=== PATIENT | female | born 1990 | race Two or more races ===

== ENCOUNTER 2018-05-31 06:19 | Inpatient (IN) | payer OTHER ==
[~2018-05-31] VITALS: Ht 160 cm; Wt 72.6 kg
[2018-05-31] VITALS (17 sets, daily range): BP systolic 112–144; BP diastolic 65–86
[~2018-05-31 06:19] MED LIST: LR 1000ml 1,000 ML IVLG SCH; NKM
[2018-05-31] MEDS ORDERED: Zemuron 50mg/5ml Inj IV ONE (06:24)
[2018-05-31] MEDS ORDERED: Ketorolac 30mg Inj IV PRN ×2 (06:30)
[2018-05-31] MEDS ORDERED: Meperidine 50mg/ml Inj(FOR RIGORS ONLY) IVP PRN (06:30)
[2018-05-31] MEDS ORDERED: fentaNYL 100 mcg/2 mL IV PRN (06:30)
[2018-05-31] MEDS ORDERED: Atropine Sulfate 0.4mg/ml inj IVP PRN (06:30)
[2018-05-31] MEDS ORDERED: oxyCODONE HCL/Acetaminophen 5/325mg ORAL PRN (06:30)
[2018-05-31] MEDS ORDERED: Gelfoam Absorbable 1gm powder pkt TOPIC ONE (06:30)
[2018-05-31] MEDS ORDERED: Norco 5mg/325mg tab ORAL PRN (06:30)
[2018-05-31] MEDS ORDERED: HYDROcodone/Acetamin 7.5/325 tab ORAL PRN (06:30)
[2018-05-31] MEDS ORDERED: Acetaminophen (Non formulary) 100 ML IV ONE (06:30)
[2018-05-31] MEDS ORDERED: Midazolam 2mg/2ml Inj IVP PRN (06:30)
[2018-05-31] MEDS ORDERED: Metoclopramide 10mg/2ml Inj IVP PRN (06:30)
[2018-05-31] MEDS ORDERED: LORazepam Inj 2mg/ml 1ml IV PRN (06:30)
[2018-05-31] MEDS ORDERED: Propofol 1,000mg/ 100ml btl IV ONE ×2 (06:30→08:00)
[2018-05-31] MEDS ORDERED: DiphenhydrAMINE 50mg/ml Inj IVP PRN (06:30)
--- NOTE | 2018-05-31 06:58 | Anethesia Preoperative Eval ---
Anesthesia Pre-op PMH/ROS General Date of Evaluation: May 31, 2018 Time of Evaluation: 08:06 Anesthesiologist: Shona ASA Score: ASA 2 Mallampati Score Class I : Soft palate, uvula, fauces, pillars visible Class II: Soft palate, uvula, fauces visible Class III: Soft palate, base of uvula visible Class IV: Only hard plate visible Mallampati Classification: Class II Surgeon: Patricio Diagnosis: Back Pain Surgical Procedure: TLIF L4-5, Redo Laminectomy, Discectomy Anesthesia History: none Social History: smoking Family History: no anesthesia problems Allergies: Coded Allergies: No Known Allergies (Unverified , 05/29/18) Medications: see eMAR Patient NPO?: Yes Past Medical History Pulmonary: Reports: other - Bronchitis, Smoking PSxH Narrative: Lumbar Spine Sx Anesthesia Pre-op Phys. Exam Physician Exam Last Vital Signs Date Time Temp Pulse Resp B/P (MAP) Pulse Ox O2 Delivery O2 Flow Rate FiO2 05/31/18 06:49 97.1 91 18 124/65 (84) 99 Constitutional: NAD Neurologic: CN 2-12 intact Cardiovascular: RRR Respiratory: CTA Gastrointestinal: S/NT/ND Airway Exam Mallampati Score: Class II MO: full ROM: full Teeth: intact Anesthesia Pre-op A/P Labs Urine Test Test 05/31/18 06:30 Urine HCG, Qualitative Pending Risk Assessment & Plan Assessment: ASA 2 Plan: GA, SED, GlideScope Go Status Change Before Surgery: No Pre-Antibiotics Dru Grams Ancef IV Given Within 1 Hr of Incision: Yes Time Given: 08:26 Matthew Nagel MD May 31, 2018 06:58
[2018-05-31] MEDS ORDERED: ceFAZolin sod 1 GM in NS 55 ML IVPB ONE (07:00)
[2018-05-31] MEDS ORDERED: Sodium Chloride 10ml vial INJ ONE (07:10)
[2018-05-31] MEDS ORDERED: Dexamethasone 4mg/ml vial ONE (07:10)
[2018-05-31] MEDS ORDERED: Lidocaine 1% MPF 10mg/ml 5ml ONE (07:10)
[2018-05-31] MEDS ORDERED: fentaNYL 100 mcg/2 mL IV ONE ×3 (07:11→11:47)
[2018-05-31] MEDS ORDERED: Vancomycin 1gm inj IVPB ONE (07:13)
[2018-05-31] MEDS ORDERED: Thrombin 5000 units spray kit TOPIC ONE (07:13)
[2018-05-31] MEDS ORDERED: Bacitracin 50000 Units Vial ONE (07:14)
[2018-05-31] MEDS ORDERED: Lidocaine 1% 10mg/ml/Epi 0.005mg/ml 30ml vial INJ ONE (07:14)
[2018-05-31] MEDS ORDERED: Bupivacaine w/Epi 0.5% 30ml Vial INJ ONE (07:14)
[2018-05-31] MEDS ORDERED: Gelfoam Size TOPIC ONE (07:14)
[2018-05-31] MEDS ORDERED: Thrombin 5000 units TOPIC ONE (07:14)
[2018-05-31] MEDS ORDERED: Lidocaine 1% Plain 30 ml INJ ONE ×2 (07:16→10:35)
--- NOTE | 2018-05-31 07:33 | 48 Hour Post Anesthesia Eval ---
Post Anesthesia Evaluation Procedure: TLIF L4-5, Redo Laminectomy, Discectomy Date of Evaluation: May 31, 2018 Time of Evaluation: 14:41 Blood Pressure Systolic: 123 0: 72 Pulse Rate: 83 Respiratory Rate: 18 Temperature (Fahrenheit): 98.6 O2 Sat by Pulse Oximetry: 100 Airway: patent Nausea: No Vomiting: No Pain Intensity: 3 Hydration Status: adequate Cardiopulmonary Status: Stable Mental Status/LOC: patient returned to baseline Follow-up Care/Observations: 0 Post-Anesthesia Complications: 0 Follow-up care needed: N/A Matthew Nagel MD May 31, 2018 07:33
--- NOTE | 2018-05-31 07:33 | Immediate Post-Op Evaluation ---
Immediate Post-Op Evalulation Immediate Post-Op Evalulation Procedure: TLIF L4-5, Redo Laminectomy, Discectomy Date of Evaluation: May 31, 2018 Time of Evaluation: 12:37 IV Fluids: 1100 LR Blood Products: 0 Estimated Blood Loss: 200 Urinary Output: 700 Blood Pressure Systolic: 140 Blood Pressure Diastolic: 74 Pulse Rate: 113 Respiratory Rate: 16 O2 Sat by Pulse Oximetry: 100 Temperature (Fahrenheit): 98.4 Pain Score (1-10): 2 Nausea: No Vomiting: No Complications 0 Patient Status: awake, reacts, patent, extubated, none Hydration Status: adequate Dru Grams Ancef IV Given Within 1 Hr of Incision: Yes Time Given: 08:26 Matthew Nagel MD May 31, 2018 07:33
[2018-05-31] MEDS ORDERED: NS Irrig 1000ml ONE (08:00)
[2018-05-31] MEDS ORDERED: LR 1000ml ONE (08:00)
[2018-05-31] MEDS ORDERED: Sterile Water Irrig 1000ml IRRIG ONE (08:00)
--- NOTE | 2018-05-31 08:39 | Pre-Procedure Note/Attestation ---
Pre-Procedure Note/Attestation Complete Prior to Procedure Procedure Narrative: L45 HWR, Discectomy, and TLIF Indications for Procedure Pre-Operative Diagnosis: SP discectomy, laminectomy and placement of coflex Attestation I attest that I discussed the nature of the procedure; its benefits; risks and complications; and alternatives (and the risks and benefits of such alternatives ), prior to the procedure, with the patient (or the patient's legal sales representative trainee). I attest that, if there was a reasonable possibility of needing a blood transfusion, the patient (or the patient's legal sales representative trainee) was given the [facility] standardized written summary, pursuant to the [place] Blood Safety Act ([place] Health and Safety Code # 1645, as amended). I attest that I re-evaluated the patient just prior to the surgery and that there has been no change in the patient's H&P, except as documented below: Wes Curry MD May 31, 2018 08:39
--- NOTE | 2018-05-31 08:44 | Brief Operative Note ---
Immediate Post Operative Note Operative Note Pre-op Diagnosis: SP discectomy, laminectomy and placement of coflex Procedure: HWR, L45, redo discectomy, and TLIF L Post-op Diagnosis: same as pre-op Surgeon: magnus Line Fixer: Suze Additional Surgeons: Davon Woodson, KEVEN Anesthesiologist: mic King Anesthesia: general Specimen: yes Complications: none Condition: stable Fluids: 1100 Estimated Blood Loss: volume - 200 Drains: hemovac Implant(s) used?: Yes - spinal elements Wes Curry MD May 31, 2018 08:44
[2018-05-31] MEDS ORDERED: Glycopyrrolate 0.2mg/ml 1ml Vial ONE (09:39)
[2018-05-31] MEDS ORDERED: Neostigmine 1mg/ml 10ml Inj ONE (09:39)
[2018-05-31] MEDS ORDERED: Milk of Magnesia 30ml Ud ORAL PRN ×2 (11:30→12:15)
[2018-05-31] MEDS ORDERED: HYDROcodone/Acetamin 10/325 tab ORAL PRN (11:30)
[2018-05-31] MEDS ORDERED: Naloxone 0.4mg/ml Inj ONE (11:42)
[2018-05-31] MEDS: Hydromorphone 0.5mg/0.5ml inj IVP PRN ×2 (12:53→13:18)
[2018-05-31] MEDS ORDERED: PCA HYDROmorphone 1mg/ml 30 ML IV PRN ×2 (13:43→13:59)
[2018-05-31] MEDS ORDERED: PCA HYDROmorphone 1mg/ml 30 ML IV ONE (13:44)
[2018-05-31] MEDS ORDERED: Rate Change PCA 1 Each MISC PRN (13:45)
--- NOTE | 2018-05-31 14:50 | Diagnostic Imaging Report ---
INDICATION: Pain, intraoperative TECHNIQUE: Intraoperative imaging Fluoroscopy time: 19.6 seconds Total dose: 7.19 mGy Total number of images: COMPARISON: None FINDINGS: Intraoperative images demonstrate surgical needle projected posterior to what is presumably L4-5. Incidental note is made of pre-existing hardware between the L5 and S1 spinous processes. Subsequent images demonstrate one view ordered device projecting along L5, and a surgical tool projected over L4. Subsequent images demonstrate posterior fusion hardware at L4-5, as well as a disc spacer. IMPRESSION: Intraoperative imaging, as described
[2018-05-31] MEDS ORDERED: Dronabinol 2.5mg Cap ORAL SCH ×2 (15:00)
[2018-05-31] MEDS ORDERED: Cyclobenzaprine 10mg Tab ORAL PRN (15:00)
[2018-05-31] MEDS: ceFAZolin sod 1 GM in D5W 55 ML IV SCH ×2 (16:46→23:27)
[2018-05-31] MEDS ORDERED: Docusate 100mg/10ml Liq ORAL SCH (18:00)
[2018-05-31] MEDS ORDERED: Docusate 100mg cap ORAL SCH (18:00)
[2018-05-31] MEDS: PCA shift volume MISC SCH (19:00)
--- NOTE | 2018-05-31 20:15 | Operative Note - Dictated ---
DATE OF OPERATION: 05/31/2018 SURGEON: Wes Curry M.D. FORENSIC SPECIALIST: Jose De Jesus Arciniega M.D. SECOND HACK DRIVER: Molly Woodson PA-C ANESTHESIA: Matthew Nagel M.D. ANESTHESIA TYPE: General endotracheal anesthesia. PREOPERATIVE DIAGNOSES: 1. Status post bilateral laminoforaminotomy, L4-L5 secondary to disk herniation with placement of Coflex device. 2. Recurrent disk herniation. 3. Mechanical back pain. POSTOPERATIVE DIAGNOSES: 1. Status post bilateral laminoforaminotomy, L4-L5 secondary to disk herniation with placement of Coflex device. 2. Recurrent disk herniation. 3. Mechanical back pain. OPERATION PERFORMED: 1. Removal of hardware (Coflex device, interspinous stabilizing device). 2. Operating through scarred and altered tissue/redo laminectomy, left side at L4 and superior 1/3rd at L5 with microscopic diskectomy of the extruded disk fragment at L5. 3. Complete facetectomy and diskectomy for purposes of placement of a structural cage (TLIF cage-spinal elements). 4. Posterior spinal fusion at L5. 5. Nonsegmental instrumentation at L4-L5 (spinal elements). 6. Placement of fusion mass (local autograft as well as allograft) fractured bone along the right lateral intertransverse region. 7. Placement of fusion/bone within the disk space (Signafuse for purposes of fusion). 8. Use of fluoroscopy. 9. Use of operating microscope. 10. Neurodiagnostic monitoring and pedicle screw stimulation. ESTIMATED BLOOD LOSS: 200 mL. FLUIDS: 1100 mL. COMPLICATIONS: None. FINDINGS: Large extruded disk fragments along the lateral recess, left side with the extrusion down to the level of the pedicle, requiring essentially more exposure and diskectomy as would be required with a standard TLIF approach. INDICATIONS: The patient is a very pleasant woman with fairly significant mechanical back and severe left lower extremity pain. MRI confirmed extruded disk fragment at L4-L5 with caudal migration, this is the second big disk herniation that she has had despite placement of a Coflex device, which would help stabilize her spine, however, despite placement of Coflex necessitating a spinal fusion. A fusion, we tried and avoid due to her young age, however, at this point with the second herniation, a fusion is most appropriate. RISK NOTE: The patient was explained in detail risks and benefits of surgery to include, but not be limited to those of bleeding; infection; damage to nerves, vessels, tendons; anesthetic risk; allergic reaction; aspiration; and possibly . The patient understood possible risk of pseudoarthrosis, hardware failure, and need for redo surgery was specifically also discussed. The patient is amenable to proceed. OPERATIVE PROCEDURE IN DETAIL: The patient was taken to the operative suite. After general endotracheal anesthesia was obtained, Schuster catheter was placed. She was turned prone onto a Tom frame. All bony prominences were well padded. The back was prepped and draped in usual sterile fashion. The prior incision was marked out. She received 10 mL of lidocaine extract and Marcaine with epinephrine. Prior incision was used as a focal point. The incision was then extended from L4 through L5. Extensive scarring was encountered as well as chronic inflammatory changes within the interspinous region. The interspinous fixation device was identified using a Bovie, we were able to remove all soft tissue attachments to it and then the device was mobilized off of the bone and removed. At this point, additional debulking of the scar tissue off of the interspinous region was achieved and dissection was carried out farther lateral towards the right side. The facet joint on the right was exposed and noted to be markedly deformed due to inflammatory changes. At this point, using both anatomic and fluoroscopic landmarks, the transverse processes were exposed and the mamillary body was drilled and using a probe, the pedicle was identified and noted to have excellent contact and under fluoroscopic visualization using a cannulated system, the screws were placed on the right side at L4 and L5. Bone graft was also placed deep to the screw head along the facet joint and transverse processes. This area was packed off. Attention was then turned to the left side. Tobacco Farmworker holes for the screws were placed and these areas were packed with bone graft. At this point, the facet joint was drilled out using a high-speed drill. The interface between the scar of the laminectomy and the prior edge of the laminectomy were identified and bluntly dissected with use of a curved curette and removed in a piecemeal fashion with a Kerrison punch. At this point, a complete facetectomy was performed on the left side at L4-L5. Dissection was then carried out medially and there was noted to be the edge of the prominence at the L5 level, therefore I had to extend the dissection farther out along 1/3rd to 1/2 of the lamina of L5 from cephalad to caudad. At this point, then we were able to identify the extruded disk fragment just medial to the pedicle of L5. Incision through the elevated PLL was made and the large disk was removed in a piecemeal fashion. FloSeal was applied. Attention was then turned to the disk itself. A wide and generous annulotomy was performed. Pituitary was used to remove and debulk the disk itself. Rotating marvel were then used to remove edges of cartilaginous endplate. We were able to use the rotating marvel up to 11 mm in height and that was noted to have a good overall fit. At this point, angled curettes, both upwards and downwards (cephalad and caudad) were used to prep the endplates. At this point, a 10 mm trial was put into place and noted to have excellent fit and radiographic appearance. The appropriate sized curved TLIF device was then centrally packed with local autograft bone, which was harvested from the prior laminectomy/facetectomy. In addition, bone graft was inserted along the far lateral side towards the right along with Signafuse through a funnel. At this point, the interbody cage was inserted while protecting the exiting and traversing nerve roots. At this point, satisfied with the TLIF, pedicle screws were inserted through the commercial drone pilot holes at L4 and L5 on the left side without difficulty. Fluoroscopically, the hardware was noted to be in good position. Pedicle screw stimulation was made and all were above 50 milliamps with the exception of the right L5. Despite the fact that it looks in excellent position under fluoroscopic visualization, we elected to remove this screw. The hole was then tested and noted to have all cortices intact. It was felt that there may be a partial breach without significant nerve root irritation. Therefore, rather than place a 6.5 screw, which has been there before, a 5.5 mm screw was inserted. At this point, the locking rods were connected and were secured with a locking cap and torqued to the appropriate level. At this time, copious irrigation was performed. I liked the meticulous hemostasis was achieved. I elected to place 2/3rd of 1 g of vancomycin powder subfascially, medium-sized Hemovac drain was placed, fascia was repaired using #1 Vicryl, subcutaneous closure using 2-0 Vicryl. Please note that suprafascial vancomycin was also placed. The subcutaneous closure using 2-0 Vicryl, Dermabond, and sterile dressing was then applied. The patient was then turned onto her back, awakened, extubated, and transferred to recovery room in stable condition. Sponge and needle counts were correct. [facility] Amanda Curry DR: BOBBY JOB#: [id number] CC: KHALIDA
[2018-05-31] MEDS: Dronabinol 2.5mg Cap ORAL SCH (20:24)
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
[2018-06-01] VITALS (7 sets, daily range): BP systolic 88–112; BP diastolic 49–68
[2018-06-01] MEDS: HYDROmorphone 1mg/ml Carpuject SUBQ PRN ×3 (03:48→17:20)
[2018-06-01] MEDS: PCA shift volume MISC SCH (07:00)
[2018-06-01 07:22] LABS: BASOPHILS % (AUTO) 0.7 % (0.0-2.0); HEMATOCRIT 34.1 % (37.0-47.0); HEMOGLOBIN 11.8 G/DL (12.0-16.0); LYMPHOCYTES % (AUTO) 24.2 % (20.0-45.0); MEAN CORPUSCULAR VOLUME 92 FL (80-99); MONOCYTES % (AUTO) 9.2 % (1.0-10.0); NEUTROPHILS % (AUTO) 64.9 % (45.0-75.0); PLATELET COUNT 251 K/UL (150-450); RED BLOOD COUNT 3.72 M/UL (4.20-5.40); RED CELL DISTRIBUTION WIDTH 10.7 % (11.6-14.8); WHITE BLOOD COUNT 15.1 K/UL (4.8-10.8)
[2018-06-01] MEDS: Dronabinol 2.5mg Cap ORAL SCH ×2 (08:20→20:29)
[2018-06-01] MEDS: Docusate 100mg cap ORAL SCH ×2 (08:50→17:19)
[2018-06-01] MEDS: ceFAZolin sod 1 GM in D5W 55 ML IV SCH (08:50)
--- NOTE | 2018-06-01 09:06 | Orthopedic Spine Progress Note ---
Ortho Spine - Progress Note Subjective Symptoms: improved - as compared to pre-op, L leg pain resolved Objective Vital Signs: Last 24 Hour Vital Signs Date Time Temp Pulse Resp B/P (MAP) Pulse Ox O2 Delivery O2 Flow Rate FiO2 06/01/18 04:00 98.5 68 17 104/58 (73) 98 06/01/18 04:00 17 06/01/18 00:00 18 06/01/18 00:00 98.6 86 18 112/68 (83) 98 05/31/18 21:00 Room Air 05/31/18 20:00 98.2 88 17 115/71 (86) 98 05/31/18 20:00 17 05/31/18 17:00 97.4 65 20 114/69 (84) 98 05/31/18 16:00 18 05/31/18 16:00 97.3 61 20 128/68 (88) 99 05/31/18 15:45 16 05/31/18 15:15 97.1 82 20 117/68 (84) 99 05/31/18 15:15 16 05/31/18 14:45 98.0 78 16 121/71 (88) 98 05/31/18 14:45 16 05/31/18 14:30 Nasal Cannula 3.0 05/31/18 14:30 16 05/31/18 14:15 15 05/31/18 14:15 97.1 70 16 112/73 (86) 97 05/31/18 14:03 98.2 05/31/18 14:03 13 05/31/18 14:00 98.2 76 17 120/74 99 Nasal Cannula 3 05/31/18 13:48 98.6 05/31/18 13:45 75 13 120/71 95 Nasal Cannula 3 05/31/18 13:33 94 15 130/76 96 Nasal Cannula 3 05/31/18 13:18 82 15 124/76 97 Nasal Cannula 3 05/31/18 13:10 100 13 136/86 96 Nasal Cannula 3 05/31/18 12:53 97 17 136/77 100 Nasal Cannula 3 05/31/18 12:45 104 13 126/77 100 Simple Mask 6 05/31/18 12:36 100 18 135/80 100 Simple Mask 6 05/31/18 12:31 105 18 144/73 100 Simple Mask 6 05/31/18 12:26 98.4 116 16 140/74 100 Simple Mask 6 05/31/18 12:26 83 18 100 05/31/18 12:25 113 16 100 I&O: Intake and Output 05/31/18 06/01/18 19:00 07:00 Intake Total 1865 ml 1695 ml Output Total 1000 ml 60 ml Balance 865 ml 1635 ml Intake Oral 240 ml 320 ml IV Total 1625 ml 1375 ml Output Urine Total 700 ml Drainage Total 100 ml 60 ml Estimated Blood Loss 200 ml Wound: clean, intact Drains: hemovac Neuro Status: normal - minimal L ehl weakness Assessment Procedure Performed: HWR, L45, redo discectomy, and TLIF L Plan Plan: PT, pain management, continue drain, discharge plan - In am tomorrow? Wes Curry MD Jun 01, 2018 09:06
[2018-06-01] MEDS: HYDROcodone/Acetamin 10/325 tab ORAL PRN ×3 (09:57→22:26)
--- NOTE | 2018-06-01 10:30 | Progress Note ---
DATE: 06/01/2018 ACUTE PAIN MANAGEMENT PHYSICIAN PROGRESS NOTE MEDICATIONS: Medication administration record reviewed. Medications include Phenergan, Zofran, Narcan, Dilaudid EDITOR INDEX, milk of magnesia, Dilaudid, Halsey, Pepcid, Marinol, Colace, Benadryl, Flexeril, Catapres, Mylanta, Fioricet. LABORATORY STUDIES: From this morning, June 01, 2018, shows white count 15, post-operative reactive hematocrit 34, platelets 251,000. VITAL SIGNS: Within normal limits. Afebrile, pulse 68, respirations 17, blood pressure 104/58, oxygen saturation 98% on room air. I spent over 60 minutes in consultation today. I saw the patient at the bedside with the charge nurse, ANDREA Faulkner, the orthopedic floor nurse, ANDREA Briceno, and the surgeon, Dr. Curry. I also spoke with the overnight nurse, ANDREA Lopez. Transient nausea symptoms have improved. The patient is still requiring pain relief with her Dilaudid EDITOR INDEX unit. She is finding some relief with the scheduled Marinol, which I will continue every 12 hours. There are no signs of oversedation. Neurologically, the patient still has mild right lower extremity weakness in the big toe, but it is much improved compared to preoperatively. The patient states that her leg pain has vanished and she is very pleased with the results. Dr. Wes Curry is very pleased as well with the surgical results in the past 24 hours. We would expect continued improvement in the patient's neurologic condition. The patient has already been out of bed to the restroom. She is experiencing significant pain moving in and out of bed. We will continue alternating breakthrough subcutaneous Dilaudid along with p.r.n. Halsey. I will trial her off the EDITOR INDEX after lunch today in hopes to wean off of all parenteral narcotics by tomorrow morning. The patient has an indwelling Hemovac lumbar spine drain catheter in place. Output yesterday was 100 mL and then 50 mL over the past 12 hours. We will keep the drain in place while the patient increases her ambulation. I will continue the antiemetics of Zofran and Phenergan as needed. We will advance her diet as tolerated. The patient does have extended family at home. Family member will come by today and shrimp picker her prescription for Halsey tablets, quantity 50, to be used for outpatient usage. The target for discharge will be tomorrow morning presuming her ambulation improves. Dr. Curry's office will arrange for a lumbar spine brace to be delivered to her home near [place], [place] later next week. Neo Hernandez M.D. DR: Nanette JOB#: [id number] CC:
[2018-06-02] VITALS: BP 101/60
[2018-06-02] MEDS: HYDROcodone/Acetamin 10/325 tab ORAL PRN ×2 (03:54→07:02)
[2018-06-02 04:00] VITALS: BP 106/63
[2018-06-02] MEDS ORDERED: Milk of Magnesia 30ml Ud ORAL ONE (06:50)
[2018-06-02] MEDS ORDERED: Milk of Magnesia 30ml Ud ORAL PRN (07:00)
[2018-06-02 08:00] VITALS: BP 109/72
--- NOTE | 2018-06-02 08:45 | Progress Note ---
DATE: 06/02/2018 ACUTE PAIN MANAGEMENT PHYSICIAN PROGRESS NOTE MEDICATIONS: Medication administration record reviewed. Medications include Fioricet, Mylanta, Catapres, Flexeril, Benadryl, Colace, Marinol, Pepcid, [place], Dilaudid, milk of magnesia, Narcan, Zofran, and Phenergan. LABORATORY STUDIES: From yesterday, June 01, 2018, shows white count of 15, hematocrit 34, platelets 251,000. VITAL SIGNS: Within normal limits. Afebrile, pulse 89, respirations 17, blood pressure 106/63, and oxygen saturation 98% on room air. I spent over 60 minutes in consultation today. I saw the patient at the bedside with the nurse, ANDREA Shabazz. I discussed the case with the surgeon, Dr. Wes Curry. The patient continued to improve considerably over the past 24 hours. She advanced her ambulation. She tolerated being taken off of the Dilaudid [employer]. Her pain levels were adequately controlled alternating with p.r.n. doses of subcutaneous Dilaudid along with oral hydrocodone, [place] pills. She also remains on her q.12-hour dosing of Marinol which has been working effectively. I left the prescription for the patient's mother to drop off at local pharmacy. This task has been completed and the mother did forklift picker the [place]aho pills for outpatient usage already yesterday evening. The patient denied any shortness of breath or chest pain. There have been no further nausea symptoms. The patient's diet has advanced well. The patient has been voiding urine, the patient denies any shortness of breath. With the nurse, ANDREA Shabazz at the bedside, the patient was placed in the sitting position. I examined the lumbar spine wound. Yesterday evening, the day nurse, ANDREA Briceno, contacted me that the patient had dislodged her Hemovac drain. I instructed the nurse at that time to remove the old dressing and place a 6 x 6 island bordered gauze dressings until I could examine the wound this morning. Today with the patient in the sitting position, I removed the lumbar spine wound island bordered gauze dressing. The incision line appeared clean, dry, and intact with DuraBond sealant intact. The drain hole site was closing normally and showed no evidence for erythema, exudate, or drainage. I swabbed the drain hole site and the incision line generously with alcohol pads repeatedly. I examined the lumbar spine drain catheter which showed that the tip was intact from last night. I applied a sterile island bordered gauze dressing, 6 inch x 6 inch, over the drain hole site and incision line, without any complications. I expect the patient will be discharged home to her mother's care later this morning. The patient is to contact Dr. Curry's office for showering instructions. Dr. Curry stated that his office will arrange for a lumbar spine brace to be delivered to the patient's home here near [place], [place]. Stool softeners and laxatives to avoid opioid-induced constipation. The patient already has good supply of medical marijuana at home for home usage. Currently, the patient has been using a front-wheeled walker occasionally to assist with walking. We will see at the time of discharge if she needs one for home usage as well. Neo Hernandez M.D. DR: Nanette JOB#: [id number] CC:
[2018-06-02] MEDS: Dronabinol 2.5mg Cap ORAL SCH (09:12)
[2018-06-02] MEDS: Docusate 100mg cap ORAL SCH (09:12)
[2018-06-02 12:00] VITALS: BP 113/68
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
== END 2018-06-02 13:36 | disposition home or self-care (01) | DRG 460 ==
LOC: SDSOVERFLO 06:19 → 3E 14:20
PROC: 0SP004Z Removal of Internal Fixation Device from Lumbar Vertebral Joint, Open Approach (ICD-10-PCS; principal; 2018-05-31 08:00)
PROC: 0ST20ZZ Resection of Lumbar Vertebral Disc, Open Approach (ICD-10-PCS; principal; 2018-05-31 08:00)
PROC: 0SG00AJ Fusion of Lumbar Vertebral Joint with Interbody Fusion Device, Posterior Approach, Anterior Column, Open Approach (ICD-10-PCS; principal; 2018-05-31 08:00)
DX: M51.26 Other intervertebral disc displacement, lumbar region (principal); M47.816 Spondylosis without myelopathy or radiculopathy, lumbar region; V89.2XXS Person injured in unspecified motor-vehicle accident, traffic, sequela; Z98.890 Other specified postprocedural states; M54.42 Lumbago with sciatica, left side; F17.200 Nicotine dependence, unspecified, uncomplicated; G89.18 Other acute postprocedural pain
CPT/HCPCS: 36415; 72020; 76001; 81025; 85025; 86850; 86900; 86901; 87081; 94003; 94150; J2405; J2710